=== PATIENT | female | born 1990 | race Caucasian/White ===

== ENCOUNTER 2022-08-02 16:25 | Outpatient (CLI) | payer OTHER, MEDICAID, SELFPAY ==
[2022-08-02] VITALS (7 sets, daily range): BP systolic 127–139; BP diastolic 64–78; PULSE 83–95; TEMP 36.3; O2SAT 100; BMI 49.1
[2022-08-02 17:48] LABS: Protein, Urine (Random) < 6.0 mg/dL (<11.9)
--- NOTE | 2022-08-02 19:00 | OB.TRI.NOTE ---
HPI - General General Date of Admission: 08/02/22 Date of Service: 08/02/22 Chief Complaint: headache HPI Narrative BAYLEE BILLS, is a 31-year-old female 3 para 1-0-0-1 who presented at 30 weeks gestation with EDC of 10/08/2022 complaining of a headache today. She took some Tylenol about 2 hours ago but does not seem to be helping. She also felt like she had some numbness in her right hand and leg but no weakness. No visual changes other than she may be see some black spots on the right side. States she has a history of preeclampsia with her last . She does not have a diagnosis of chronic hypertension. She has had good movement. No vaginal bleeding or leaking of fluid. PFSH PFSH Home Medications aspirin 81 mg chewable tablet 81 mg PO DAILY 08/02/22 [History Last Taken Unknown] vitamin no.76-iron,carbonyl 29 mg iron-folic acid 1 mg tablet 1 tab PO DAILY 08/02/22 [History Last Taken Unknown] Allergy/AdvReac Type Severity Reaction Status Date / Time No Known Allergies Allergy Verified 08/02/22 16:55 Social History Smoking Status: Never smoker Physical Exam Narrative Abdomen: Soft, nontender, nondistended, gravid, moderate pannus Extremities: 1+ DTRs, no clonus, 1+ edema in lower extremities. Cranial nerves II through XII intact and symmetrical grossly. NST FHR Rate Baby A Baseline: 120 Variability:: Moderate Accelerations:: 15 x 15 Decelerations:: None NST Reactive:: Yes FHR Category:: Category I Uterine Activity:: quiet Assessment & Plan (1) 30 weeks gestation of : PLAN: High risk multigravida with maternal obesity, BMI 49. History of preeclampsia with last . History of previous section. Headache is not severe, blood pressures are in the normal range for her. Urine protein creatinine ratio was normal. Reflexes are normal. 2 nurses were unable to draw the patient's blood work. NST was reactive. After observation, I was comfortable sending the patient home without blood work drawn. She is to follow-up visit week in the office for blood pressure check. Would recommend checking her blood pressures at home. Her headache is mild and nonspecific she can continue symptomatic measures as needed. (2) High risk multigravida in third trimester:
== END 2022-08-02 18:10 | disposition home or self-care (01) ==
LOC: WPOUT 16:38 → WP 16:39
PROVIDERS: Visit Provider Obstetrics & Gynecology
DX: O09.893 Supervision of other high risk pregnancies, third trimester (principal); Z3A.30 30 weeks gestation of pregnancy; O99.891 Other specified diseases and conditions complicating pregnancy; R51.9 Headache, unspecified; O16.3 Unspecified maternal hypertension, third trimester
CPT/HCPCS: 59025; 59050; 82570; 84156; 99221; G0378

== ENCOUNTER 2022-08-31 17:55 | Outpatient (CLI) | payer OTHER, MEDICAID, SELFPAY ==
[2022-08-31 18:19] VITALS: BMI 49.7
[2022-08-31 18:36] VITALS: BP 150/74; PULSE 88
[2022-08-31 18:43] VITALS: TEMP 36.1
[2022-08-31 18:49] LABS: ROM Internal Control Test YES-OK TO RESULT pt. (Internal QC); ROM Patient Test Negative (Negative)
[2022-08-31 18:52] VITALS: PULSE 91; O2SAT 100
[2022-08-31 18:56] VITALS: BP 145/84; PULSE 88
--- NOTE | 2022-08-31 19:22 | OB.TRI.HP_ITS ---
HPI - General HPI Narrative BAYLEE BILLS, is a 31 F who presents at 34w4d for possible ROM. No contractions or vaginal bleeding. Maternal Data Information RONNY Calculator Estimated Delivery Date Method Current WG Current Estimate 10/08/22 Manual 34w 4d PFSH PFSH Home Medications aspirin 81 mg chewable tablet 81 mg PO DAILY 08/02/22 [History Last Taken Unknown] vitamin no.76-iron,carbonyl 29 mg iron-folic acid 1 mg tablet 1 tab PO DAILY 08/02/22 [History Last Taken Unknown] Allergy/AdvReac Type Severity Reaction Status Date / Time No Known Allergies Allergy Verified 08/31/22 18:21 Social History Smoking Status: Never smoker Visit Details OB Flowsheet Initial Weight: Not Recorded Date -?-?-?-?-?-?-?-?-?-?-?-?- EGA Weight BP Urine Prot -?-?-?-?-?--?-?-?-?-?-?-?- Glucose FHR FuHt Pres Dilation -?-?-?-?-?-?-?-?-?-?-?--?- Effaced St Visit Note 08/31/22 -?-?-?-?-?-?-?-?-?-?-?-?- 34w 4d 272 lb 150/74 145/84 -?-?-?-?-?-?-?-?-?-?-?-?- -?-?-?-?-?-?-?-?-?-?-?-?- NST FHR Rate Baby A Baseline: 115 Variability:: Moderate Accelerations:: 15 x 15 Decelerations:: None NST Reactive:: Yes FHR Category:: Category I Uterine Activity:: None Assessment & Plan (1) Vaginal discharge: PLAN: Plan 1) ROM plus negative and no gross fluid 2) No signs of labor and D/C home
== END 2022-08-31 19:13 | disposition home or self-care (01) ==
LOC: WPOUT 17:59 → WP 17:59
PROVIDERS: Visit Provider Advanced Practice Midwife
DX: O47.03 False labor before 37 completed weeks of gestation, third trimester (principal); Z3A.34 34 weeks gestation of pregnancy
CPT/HCPCS: 59050; 84112

== ENCOUNTER 2022-09-18 05:00 | Inpatient (IN) | payer OTHER, MEDICAID, SELFPAY ==
[2022-09-18] VITALS (17 sets, daily range): BP systolic 104–166; BP diastolic 61–88; PULSE 67–112; RESP 13–20; TEMP 35.9–36.6; O2SAT 96–98; BMI 50.5
[2022-09-18] MEDS: Lactated Ringers 1,000 ML 999 ML IV (05:20)
[2022-09-18 05:41] LABS: Absolute Lymphocyte Count 1.39 X10^3/uL (0.83-4.51); Absolute Neutrophil Count 5.9 X10^3/uL (2.0-7.7); Basophil# 0.02 X10^3/uL; Basophil% 0.2 % (0-1); Eosinophil# 0.08 X10^3/uL; Hematocrit 31.4 % (37-47); Lymphocyte # 1.39 X10^3/ul (0.83-4.51); Lymphocyte % 17.2 % (19-41); Mean Corp Hgb Conc 31.8 g/dL (32-36); Mean Corpuscular Hgb 26.5 pg (27.0-32.0); Mean Corpuscular Volume 83.1 fL (81-99); Mean Platelet Vol. 9.2 fl (6.2-12.0); Monocyte% 7.4 % (0-10); NRBC Flagged by Analyzer 0 % (0-5); Neutrophil # 5.94 X10^3/uL (2.7-7.7); Neutrophil % 73.7 % (47-70); Platelet Count 227 K/mm3 (150-450); RBC Distribution Width CV 13.3 % (11.6-14.6); RBC Distribution Width SD 40.3 fl (35.1-43.9); Red Blood Count 3.78 M/mm3 (4.2-5.4); White Blood Count 8.1 K/mm3 (4.4-11.0)
[2022-09-18] MEDS: Acetaminophen 500 MG Tablet 1000 MG PO ×3 (06:02→18:34)
[2022-09-18] MEDS: Lactated Ringers 1,000 ML 150 ML IV (06:28)
[2022-09-18] MEDS: Sodium Citrate/Citric Acid 30 ML UDC PO (07:01)
--- NOTE | 2022-09-18 07:04 | HP.PCM_ITS ---
History and Physical Date of Admission: 09/18/22 PROBLEM: 37 week gestation, single IUP, gHTN, history prior section, obesity affecting , Rh negative state, history bipolar disorder ? PAST SURGICAL HISTORY: PAST SURGICAL HISTORYExpand by Default PAST SURGICAL HISTORY Procedure Laterality Date ? APPENDECTOMY ? 2012 ? DELIVERY ONLY ? ? ? VAGINOSCOPY ? PAST MEDICAL HISTORY: PAST MEDICAL HISTORYExpand by Default PAST MEDICAL HISTORY Diagnosis Date ? Abnormal Pap smear of cervix 2016 ? Anemia ? ? Asthma ? ? childhood asthma ? Bipolar affective disorder (HCC) ? ? Gestational hypertension ? ? Miscarriage ? ? MRSA (methicillin resistant Staphylococcus aureus) infection 09/17/2010 ? ER treatment ? depression ? ? ? SUBJECTIVE: Doing well and offers no complaints ? SOCIAL HISTORY: SOCIAL HISTORYExpand by Default Social History ? Tobacco Use ? Smoking status: Never ? ? Passive exposure: Yes ? Smokeless tobacco: Never ? Tobacco comments: ? ? Passive Vaping Use ? Vaping Use: Never used Substance Use Topics ? Alcohol use: Not Currently ? ? Comment: occasional ? Drug use: Never ? ? ALLERGIESExpand by Default ALLERGIES No Known Allergies ? Current Outpatient Medications on File Prior to Visit Medication Sig ? ondansetron (ZOFRAN) 4 mg tablet Take 1 tablet by mouth every 8 hours as n eeded for nausea/vomiting. ? prental multivitamin 27 mg iron- 800 mcg tablet Take 1 tablet by mouth once daily. ? Current Facility-Administered Medications on File Prior to Visit Medication ? perflutren lipid microspheres 1.3 mL in NaCl (PF) 0.9% 10 mL injection (DEFINITY) ? sodium chloride 0.9 % (flush) 10 mL (BD POSIFLUSH) ? OBJECTIVE: ? VITALS: BP 126/80 LMP 01/01/2022 (Exact Date) ? HEENT: Normocephalic, atraumatic, Mucus membranes moist without lesions. ? NECK: Soft and Supple. No adenopathy , thyromegaly or bruits. ? SKIN: No lesions. ? CHEST: Clear to auscultation. No wheezes or rales. Good air exchange. ? HEART: Regular rate and rhythm No S3 or S4. No gallops or rubs. ? BACK: Nontender with no CVA tenderness. ? ABDOMEN: Soft, non-tender, non-distended, no masses, no hepatosplenomegaly. ? LOWER EXTREMITIES: There was no pitting edema, no palpable cords and no skin changes. ? ASSESSMENT: repeat section ? PLAN: 1) Discussed r/b/a to repeat section. The rationale for the proposed surgery was discussed in addition to risks, benefits, and alternatives. General pre- and post-operative care was reviewed. Questions were answered. After discussion, the patient indicated a desire to proceed with the planned surgery. ? Delia Oneill, DO Assessment & Plan Assessment/Plan (1) 37 weeks gestation of : (2) High risk multigravida in third trimester: (3) History of section: (4) Rh negative state in antepartum period: (5) Obesity affecting : (6) Gestational hypertension: (7) History of bipolar disorder:
[2022-09-18 07:06] LABS: AST(SGOT) 22 U/L (15-37); Alanine Aminotransfer ALT/SGPT 23 U/L (13-56); Creatinine, Serum 0.62 mg/dL (0.55-1.02); EST Glomerular Filtration Rate 120 mL/min (>60); Est Glom Filt Rate - Afr Amer 145 mL/min (>60); Estimated Creatinine Clearance 105.89 ml/min; Uric Acid 5.5 mg/dL (2.6-6.0)
[2022-09-18 07:14] LABS: Protein, Urine (Random) 19.1 mg/dL (<11.9); Protein:Creat Ratio 182 mg/g CRE (0-200)
--- NOTE | 2022-09-18 08:29 | PCM.OPRPT ---
Problems Associated Problem List Diagnoses (1) History of bipolar disorder: (2) Gestational hypertension: (3) Obesity affecting : (4) Rh negative state in antepartum period: (5) History of section: (6) 37 weeks gestation of : (7) High risk multigravida in third trimester: (8) Delivery by section: Report of Operation Date of Procedure: 09/18/22 Pre-Operative Diagnosis: 37 week gestation, single IUP, gHTN, obesity affecting , history prior section Post-Operative Diagnosis: As above Surgery/Procedure Performed:: PLTCS via pfannenstiel incision Description of Surgical Findings:: VMI in cephalic presentation. Clear fluid. Normal appearing placenta with 3 VC. Apgars 8, 9. Normal appearing uterus and bilateral adnexa. Minimal adhesive disease Surgeon: Delia Oneill energy conservation specialist: Ashley HERBERT Type of Anesthesia: Spinal Special Medications: None Specimen's removed: Placenta Drains: Alvarez Estimated Blood Loss (mL): 600 Fluids Replaced: 1 L Description of Procedure: Patient was taken to the operating room where spinal anesthesia was found to be adequate. The patient was prepped and draped in dorsal position with a leftward tilt. A Pfannenstiel skin incision was made using a scalpel and this was carried down to the underlying layer fascia. The fascia was incised in midline. The fascia was extended laterally using Velásquez scissors. The fascia was minimally dissected off the rectus muscles with some adhesive disease noted. The rectus muscles were in the midline. The peritoneum was entered bluntly with good visualization of the bladder. The peritoneal incision was extended bluntly. A bladder blade was inserted. A low transverse incision was made on the uterus with a scalpel. Membranes were ruptured for clear fluid. A vigorous viable male was delivered easily without any force or delay through the hysterotomy. The cord was clamped and cut after slight delay. The was handed off to the awaiting nursery staff. Placenta was removed with manual extraction. The uterus was cleared of all clot and debris. Uterus was exteriorized. The uterine incision was closed with 1-0 Vicryl in 2 layers. Several additional [id number]'s were placed for hemostasis. Uterus was placed back in the abdomen. Geni was placed over the uterine incision and lower uterine segment. Rectus muscles were hemostatic. Fascia was closed with strata fix in a running fashion. Subcutaneous space was irrigated and made hemostatic with the Bovie cautery. Subcutaneous space was closed with 3-0 Vicryl. Skin was closed with 4-0 Monocryl in subcuticular fashion. A dressing was placed. Instrument, sponge, needle counts were correct. The patient was taken to the recovery room in stable condition. Grafts/Implants Used: None Procedure Start Time: 07:42 Procedure Stop Time: 08:26 Complications None Admit VTE Documentation VTE Present on Admission: No VTE Mechan Device Prophylaxis: SCD's
[2022-09-18 08:41] LABS: Syphilis Antibodies Non-reactive
[2022-09-18] MEDS: Oxytocin 15 Units/NS 250ml 15 UNITS/250 ML IV.SOLN 83 UNITS IV (08:50)
[2022-09-18] MEDS: Ketorolac 30 MG/ML Syringe IV ×3 (09:11→20:58)
--- NOTE | 2022-09-18 09:15 | NURSING ---
This RN noticed baby was dusky in color (even when crying) while skin to skin with mom in room. Spo2 taken while baby in skin to skin and ranged from 60-68% on room air. Dr. Lazo called and came to bedside to assess. Baby taken to the nursery at 0923. See paper resuscitation record for this time for full information.
[2022-09-18] MEDS: HYDROmorphone 1 MG/ML Syringe IV ×2 (09:51→14:15)
--- NOTE | 2022-09-18 10:23 | PCM.NY.DEL ---
Delivery Attendance Service Date: 09/18/22 Service Time: 08:00 Asked to attend delivery by: OB (Dr. Delia Oneill) and Nursing (Isaura once baby was out) Reason for attendance: - (hypoxia, respiratory distress) Plan: - (transfer to [facility]) Course of Delivery Was resuscitation required: Yes Interventions at Delivery: Bulb Suction, CPAP and PPV Physical Exam Apgars/Vital Signs/Weight: Weight: 125.4 kg General: Active, Strong cry and Responsive to exam Head: Normocephalic Nose: Nares patent Oropharynx: Palate intact Lungs: Clear to auscultation, Grunting, Intercostal retractions and Sternal retractions Cardiovascular: Regular rate and rhythm and No murmurs Cord Vessel Description: 3 Vessels Neurological: Muscle tone normal Skin: Normal color (with CPAP) General Weight: 125.4 kg Abdomen 3 Vessels Delivery Course Baby was born AT 0742 and went directly STS with mother. Was noted at 0758 that he was dusky and grunting a bit, so brought to stabilate and given 2 minutes of PPV by Geraldine WATTS and then changed to CPAP via mask, up to 30% and ped called. He then required 30% of FiO2 via mask and responded well. He was able to be weaned off of the
[2022-09-18] MEDS: oxyCODONE 5 MG Tablet PO (11:17)
[2022-09-18] MEDS: Senna/Docusate Sodium 1 Tablet PO (11:18)
[2022-09-18] MEDS: Lactated Ringers 1,000 ML 100 ML IV (12:25)
[2022-09-18] MEDS: 0.9% Saline Lock 10 ML Syringe IV ×2 (15:08→20:58)
--- NOTE | 2022-09-18 18:16 | CASEMGMT ---
Social Work Date of Intervention:?09.18.2022 Time of Intervention:?Approximately 1700 ? Summary of Family/Staff/Agency Contact:??Referral received for reports of mother of baby (MOB) mom and stepfather having alcohol use issues. Noted in chart a maternal history of anxiety/bipolar disorder/ depression. ?? has been transferred to the [facility]. ? Note, this administrative underwriter is the director social service for [facility] labor and delivery unit, and for continuity of care of families admitted to the [facility] from [facility], this administrative underwriter is the assigned director social service to the [facility]. ?? ? This administrative underwriter presented to mother of baby's room to conduct initial assessment, but MOB getting ready to visit with baby in the SCN, and multiple family members present including 's older sibling Maria Esther (5), father of baby, and 's grandmother. Introduced to self and role. ?Agreed to come back at a later time for discussion. ?MOB appreciative. ?? ? Impression:? MOB appearing alert and oriented, good eye contact, though needing help as just had a today. ??FOB and sibling in room were talkative and pleasant. ? ? Plan:? Social work to follow.?? ? Response to Plan:??MOB?does express understanding of proposed plan. ? MIKE Acosta 09/18/2022?
[2022-09-18] MEDS: Enoxaparin 40 MG/0.4 ML Syringe SC (19:45)
[2022-09-19 00:30] VITALS: BP 156/76; PULSE 77; RESP 16; TEMP 36.7; O2SAT 96
[2022-09-19] MEDS: Acetaminophen 500 MG Tablet 1000 MG PO ×3 (00:33→11:42)
[2022-09-19 03:09] VITALS: BP 152/78; PULSE 86; RESP 16; TEMP 36.8; O2SAT 97
[2022-09-19] MEDS: Ketorolac 30 MG/ML Syringe IV (03:11)
[2022-09-19] MEDS: 0.9% Saline Lock 10 ML Syringe IV (03:11)
--- NOTE | 2022-09-19 03:29 | NURSING ---
Call placed to Dr Cotto to inform her of pt's blood pressures 150's/70's through out the night and concern that pt's blood pressures will increase now that her baby is being transferred to [facility]. ordered procardia 10mg now and then procardia 30XL daily to start in 1 hour. No new labs to be drawn other than cbc.
[2022-09-19 03:56] LABS: Hematocrit 29.9 % (37-47); Hemoglobin 9.7 g/dL (12.0-15.0); Mean Corp Hgb Conc 32.4 g/dL (32-36); Mean Corpuscular Hgb 27.1 pg (27.0-32.0); Mean Corpuscular Volume 83.5 fL (81-99); Mean Platelet Vol. 9.2 fl (6.2-12.0); Platelet Count 254 K/mm3 (150-450); RBC Distribution Width CV 13.6 % (11.6-14.6); RBC Distribution Width SD 41.4 fl (35.1-43.9); Red Blood Count 3.58 M/mm3 (4.2-5.4); White Blood Count 13.1 K/mm3 (4.4-11.0)
[2022-09-19] MEDS: NIFEdipine 10 MG Capsule PO (03:57)
[2022-09-19] MEDS: oxyCODONE 5 MG Tablet PO (03:57)
[2022-09-19 03:59] LABS: Scan Indicated on CBC? Y/N NO
[2022-09-19] MEDS: NIFEdipine 30 MG Tablet PO (05:13)
[2022-09-19 06:27] VITALS: BP 159/82; PULSE 93; RESP 16
[2022-09-19 07:52] VITALS: BP 143/81; PULSE 88; RESP 16; TEMP 36; O2SAT 98
[2022-09-19] MEDS: Enoxaparin 40 MG/0.4 ML Syringe SC (08:04)
--- NOTE | 2022-09-19 08:51 | PN.OBGYN_ITS ---
Subjective Subjective Doing well per patient and nursing staff. Ambulating and taking PO without difficulty. Voiding and passing flatus. Pain controlled. Denies headache, visual changes, chest pain, shortness of breath, leg pain or increased bleeding. Lochia normal.Baby transferred to [facility]. Objective Data Objective Data Vital Signs: Vital Signs Temp Pulse Resp BP Pulse Ox O2 Del Method 96.8 F L 88 16 143/81 H 98 Room Air 09/19/22 07:52 09/19/22 07:52 09/19/22 07:52 09/19/22 07:52 09/19/22 07:52 09/19/22 07:52 Oxygen Delivery Method Room Air Weight: 276 lb 7.355 oz Body Mass Index (BMI) 50.5 Intake & Output: Intake and Output for Last 24 Hours 09/17/22 09/18/22 09/19/22 23:59 23:59 23:59 Intake Total 2160.83 / 2160.83 Output Total 3900 / 3900 450 / 450 Balance -1739.17 / -1739.17 -450 / -450 Lab / Micro Data Result Diagrams: 09/19/22 03:45 09/18/22 06:43 Labs: Laboratory Results - last 24 hr 09/18/22 10:10: Screen NEGATIVE, Baby's Blood Type O POSITIVE, Baby's STEPH NEGATIVE 09/19/22 03:45: WBC 13.1 H, RBC 3.58 L, Hgb 9.7 L, Hct 29.9 L, MCV 83.5, MCH 27.1, MCHC 32.4, RDW Std Deviation 41.4, RDW Coeff of Rich 13.6, Plt Count 254, MPV 9.2 ROS Constitutional Constitutional: Reports systems reviewed and no addt'l complaints, except as documented; Denies headache(s) Eyes Eyes: Denies acute decrease in peripheral vision, blurry vision or change in vision ENT HEENT: Reports systems reviewed and no addt'l complaints, except as documented Cardiovascular Cardiovascular: Denies chest pain or dizziness Respiratory/Chest Respiratory/Chest: Denies cough, dyspnea, dyspnea on exertion, shortness of b reath at rest or shortness of breath with exertion Gastrointestinal Gastrointestinal: Denies abdominal pain, diarrhea, nausea or vomiting Genitourinary Genitourinary: Denies abdominal discomfort Musculoskeletal Musculoskeletal: Denies limited range of motion Integumentary Integumentary: Reports systems reviewed and no addt'l complaints, except as documented Neurologic Neurologic: Reports systems reviewed and no addt'l complaints, except as documented Psychiatric Psychiatric: Reports systems reviewed and no addt'l complaints, except as documented Endocrine Endocrinology: Reports systems reviewed and no addt'l complaints, except as documented Hematologic/Lymphatic Hematologic/Lymphatic: Reports systems reviewed and no addt'l complaints, except as documented Allergic/Immunologic Allergic/Immunologic: Reports systems reviewed and no addt'l complaints, except as documented Physical Exam Const alert and oriented x3 General Appearance: cooperative Orientation / Consciousness: awake, oriented to person, oriented to place and oriented to time Exam Limitations: no limitations HEENT normocephalic Head and Scalp: normal to inspection, normocephalic and atraumatic Face and Sinus: normal facial exam Eyes General Eye: normal appearance of both eyes Neck full ROM Chest Chest: symmetrical chest wall rise Resp normal respiratory effort and normal air movement Auscultation: clear to auscultation bilaterally Cardio regular rate, regular rhythm, S1 normal heart sound, S2 normal heart sound, no murmurs, no rub, no gallops and no clicks GI normal to inspection, nondistended, normoactive bowel sounds and non-tender appearance of the vagina normal Bladder / Kidney Exam: no CVA tenderness Back/Spine normal ROM Extremity normal to inspection and full ROM Skin no rashes or lesions noted Neuro oriented x3, CN's II-XII intact bilaterally and moves all extremities Sensorium / Orientation: awake, alert and oriented to person Motor Exam: clonus absent Deep Tendon Reflexes: Rt Patellar (L4): 2+ and Lt Patellar (L4): 2+ Assessment & Plan (1) Delivery by section: (2) History of bipolar disorder: (3) Gestational hypertension: PLAN: Plan 1) POD #1 2) BP elevated last night, started on Procardia Xl 30 mg PO once daily. BP lower this am. Asymptomatic 3) I&O 4) Pain management 5) Hgb stable 6) Would like discharge due to baby being in [place]. Can discharge with blood pressure monitoring program. Will provide education and supplies. If BP i ncreasing or 160/110 to call provider sheet music salesperson for further management. 7) D/C today later in afternoon after BP continues to be stable.
--- NOTE | 2022-09-19 09:14 | PCM.DC.SUM ---
Providers Date of Admission: 09/18/22 Primary Care Physician: Tenisha Primary Care Phys Reason For Visit: REPEAT C SECTION Diagnosis Discharge Diagnosis (1) Delivery by section: Status: Acute (2) History of bipolar disorder: Status: Acute Code(s): Z86.59 - Personal history of other mental and behavioral disorders (3) Gestational hypertension: Status: Acute Code(s): O13.9 - Gestational [-induced] hypertension without significant proteinuria, unspecified trimester Plan 1) POD #1 2) BP elevated last night, started on Procardia Xl 30 mg PO once daily. BP lower this am. Asymptomatic 3) I&O 4) Pain management 5) Hgb stable 6) Would like discharge due to baby being in [place]. Can discharge with blood pressure monitoring program. Will provide education and supplies. If BP increasing or 160/110 to call provider button decorating machine operator for further management. 7) D/C today later in afternoon after BP continues to be stable. Medications at Discharge Home Medications vitamin no.76-iron,carbonyl 29 mg iron-folic acid 1 mg tablet 1 tab PO DAILY 08/02/22 ibuprofen 600 mg tablet 600 mg PO Q6H #0 tabs 09/19/22 nifedipine 30 mg tablet,extended release 24 hr 30 mg PO DAILY #30 tabs 09/19/22 oxycodone 5 mg tablet 5 mg PO Q6H 7 days #10 tabs 09/19/22 Hospital Course Summary of Care Provided Hospital Course: Presented on 09/18/22 for repeat LTCS. Gestational HTN and requirement of medication . Discharge on POD#1 due to baby being transferred. Discharged with BP monitoring program. Weight / BMI Weight Weight: 276 lb 7.355 oz Body Mass Index (BMI) 50.5 ABG / Lab / Microbiology Data Result Diagrams: 09/19/22 03:45 09/18/22 06:43 Laboratory: Laboratory Results - last 24 hr 09/18/22 10:10: Screen NEGATIVE, Baby's Blood Type O POSITIVE, Baby's STEPH NEGATIVE 09/19/22 03:45: WBC 13.1 H, RBC 3.58 L, Hgb 9.7 L, Hct 29.9 L, MCV 83.5, MCH 27.1, MCHC 32.4, RDW Std Deviation 41.4, RDW Coeff of Rich 13.6, Plt Count 254, MPV 9.2 Meaningful Use Info Meaningful Use Diagnoses (Choose all that apply): None applicable Discharge Plan Admission Admit Date/Time: 09/18/22 05:00 Primary Reason for Your Visit: Section Attending Provider: Delia Oneill Primary Care Provider: Care Physician,Tenisha Primary Discharge Orders/Prescriptions Prescriptions: New nifedipine 30 mg Tablet Extended Release 24hr 30 mg PO DAILY Qty: 30 0RF ibuprofen 600 mg Tablet 600 mg PO Q6H Qty: 0 0RF oxycodone 5 mg Tablet 5 mg PO Q6H 7 Days Qty: 10 0RF Continued vit,[id number] 29 mg iron- 1 mg Tablet 1 tab PO DAILY Discontinued aspirin [Baby Aspirin] 81 mg Tablet,Chewable 81 mg PO DAILY Referrals / Follow Up: Care Physician,No Primary [Primary Care Provider] - Disposition Disposition (needs filled in before D/C Order can be placed): Home, Self Care
[2022-09-19] MEDS: Ibuprofen 600 MG Tablet PO (09:17)
--- NOTE | 2022-09-19 10:52 | NURSING ---
Blood pressure kit given to the pt, we discussed parameters of when to call the doctor. We talked about signs and symptoms. Kit opened up and demonstration provided. Antoine here on the floor as well as both aware pt is going home with the kit. Lissett Kebede RN aware pt has the kit.
[2022-09-19] MEDS: Senna/Docusate Sodium 1 Tablet PO (11:43)
[2022-09-19 13:29] VITALS: BP 122/65; PULSE 90; RESP 16; TEMP 35.8; O2SAT 100
== END 2022-09-19 14:25 | disposition home or self-care (01) | DRG 788 ==
PROVIDERS: Admitting Provider Obstetrics & Gynecology; Visit Provider Obstetrics & Gynecology
PROC: 10D00Z1 Extraction of Products of Conception, Low, Open Approach (ICD-10-PCS; CPT 59514; principal; 2022-09-18 06:55)
DX: O13.4 Gestational [pregnancy-induced] hypertension without significant proteinuria, complicating childbirth (principal); E66.8 Other obesity; O34.219 Maternal care for unspecified type scar from previous cesarean delivery; Z37.0 Single live birth; Z3A.37 37 weeks gestation of pregnancy; Z67.91 Unspecified blood type, Rh negative; Z86.59 Personal history of other mental and behavioral disorders; O99.214 Obesity complicating childbirth
CPT/HCPCS: 59025; 59050; 82565; 82570; 84156; 84450; 84460; 84550; 85025; 85027; 85461; 86780; 86850; 86900; 86901; 99221; J7120; A4216; G0378; J2405; J2790